=== PATIENT | female | born 1990 | race Two or more races ===

== ENCOUNTER 2023-10-10 00:20 | Emergency (ER) | payer BC, SELFPAY ==
[2023-10-10 00:21] VITALS: BP 136/100
[2023-10-10 01:31] LABS: Hematocrit 22.7 % (37.0-47.0); Hemoglobin 7.6 g/dL (12.0-16.0); Mean Corp Hgb Conc. 33.5 g/dL (33.0-37.0); Mean Corpuscular Hgb 29.1 pg (27.0-31.0); Mean Platelet Volume 9.8 fL (7.4-10.4); Platelet Count 207 10^3/uL (130-400); Red Blood Cell Count 2.61 10^6/uL (4.20-5.40); Red Cell Dist. Width 17.3 % (11.5-14.5); White Blood Cell Count 9.8 10^3/uL (4.8-10.8)
[2023-10-10 01:42] VITALS: BP 119/80
[2023-10-10 01:53] LABS: ALT (SGPT) 17 U/L (0-35); AST (SGOT) 26 U/L (14-36); Albumin 3.2 g/dl (3.5-5.0); Alkaline Phosphatase 120 U/L (38-126); Blood Urea Nitrogen 13 mg/dl (7-17); Carbon Dioxide 26 mmol/L (22-30); Chloride 106 mmol/L (98-107); Glucose 105 mg/dl (70-99); Potassium 4.3 mmol/L (3.5-5.1); Sodium 139 mmol/L (135-145); Total Bilirubin 0.3 mg/dl (0.2-1.3); Total Protein 5.8 g/dl (6.3-8.2); eGFR > 60.00
[2023-10-10 01:54] VITALS: BP 115/82
[2023-10-10 01:57] LABS: Absolute Neutrophils -Man Diff 7.2 10^3/uL (1.4-6.5); Anisocytosis Slight; Band Neutrophils 7 % (0-3); Hypochromasia Slight; Lymphocytes 21 % (20-51); Metamyelocytes 2 % (-); Monocytes 2 % (2-9); Myelocytes 1 % (-); Normal RBC Morphology No; Nucleated Red Blood Cells 3 (-); Platelets Checked Yes; Polychromasia Slight; Segmented Neutrophils 67 % (42-75)
--- NOTE | 2023-10-10 01:57 | ED.GENMED ---
History of Present Illness
General
Chief Complaint: DVT/Possible Blood Clot
Source: patient, spouse and other (Records from [facility].)
Exam Limitations: none
Time Seen by Provider: 10/10/23 00:55
Nursing documentation reviewed up to this point in time: agreed with
History of Present Illness
History of Present Illness:
This is a 33-year-old woman who has history of left calf DVT April of this year which occurred during . She was started on subcutaneous heparin, initially 3 times daily and she underwent induction with vaginal delivery October 03.
No complications during delivery. Heparin was discontinued for 3 days prior to delivery and then resumed postdelivery at 20,000 units twice daily. She has been following with lead web application developer, Dr. Shelby from [place]. She complains of persistent
left posterior calf pain since April and has undergone several venous Dopplers left lower extremity showing no DVT September 22 as well as again October 06.
Despite numerous intervention she continues with left posterior calf pain. She states no improvement in pain despite trial of Dilaudid tablets, oxycodone tablets.
She has been taking Tylenol, last dose at 10:30 PM without relief.
She was evaluated at [facility] ED October 06. Venous Doppler left lower extremity was negative. Labs revealed a hemoglobin of 8.0, hemoglobin 8.4. PTT greater than 120. Recommended to hold her heparin for that day and then
resume the following day. During that ED visit case discussed with hematology as well as LIVE STUDY MANAGER.
Patient states her vaginal bleeding was light yesterday only changing her pad twice but she has had to change her pad 4 times today and passed 1 large clot. She does admit to mild lightheadedness this afternoon which improved after eating a meal.
No chest pain or palpitations, no cough no shortness of breath, no fever no chills.
Tonight after dinner she developed generalized hives and took a dose of Benadryl with complete resolution. No other associated symptoms with the hives and no return of urticaria. She has had similar hives with asparagus and is unsure if the food
she ate tonight was contaminated with asparagus.
Patient states the plan is to continue subcutaneous heparin until 3 months and then discontinue.
She is sporadically nursing but her infant son is also bottle feeding.
Patient reports history of low back pain, sciatica but states left calf pain that has been ongoing since April of this year is quite different from her sciatica pain that she has experienced in the past. She currently denies back pain.
Past History
Past History
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
ED Past Surgical History: Gynecological (D and C 2017)
Social History
Tobacco: Non-smoker
Alcohol: None
Personal:
Living: with family
Family History
Family History: Other (Noncontributory)
Phy Exam
Physical Exam
Physical Exam:
GENERAL: Alert , in no apparent distress. 33-year-old woman appears her stated age, awake and alert, pleasant, appears in no acute distress. is accompanying.
EYE: anicteric
NECK: Supple, nontender, no meningismus, no significant adenopathy.
ENT: oral mucosa is moist. No rhinorrhea.
CARDIAC: Regular rate and rhythm. no murmur.
LUNGS: Clear breath sounds bilaterally, no acute respiratory distress, no wheezes/rales/rhonchi
ABDOMEN: Soft, nondistended, without focal tenderness, no r/g, no cvat. normoactive BS. Scant blood on dani-pad. No active vaginal bleeding.
NEUROLOGICAL: Alert and oriented x3, no focal neuro deficits.
SKIN: Warm and dry, normal color, skin intact. No rash.
MUSCULOSKELETAL: No C/C/E. peripheral pulses are full and equal b/l. Mild to moderate tenderness left posterior calf without soft tissue swelling, no palpable cords, negative Homans' sign.
PSYCH: Normal and appropriate interaction.
Course
Orders/Labs/Results
Orders:
Orders
10/10/23 01:13
Type+Screen Urgent
Complete Blood Count/With Diff Urgent
Comprehensive Metabolic Panel Urgent
Manual Differential Urgent
10/10/23 01:39
ABO2 Urgent
BBK Wristband Number:
Associate notified that ABO2 has been ordered: KEITH/EMR
Date: 10/10/23
Time: 01:21
Ring Conductor ID: [id number]
10/10/23 01:46
PTT Urgent
Prothrombin Time Urgent
10/10/23 01:55
Cyclobenzaprine HCl [Flexeril] 10 mg PO NOW STA
Lidocaine [Lidocaine 4% Patch] 1 patch TOPICAL NOW STA
Apply Lidocaine patch(s) to:: left posterior calf
Tramadol HCl [Ultram] 50 mg PO NOW STA
Abnormal Lab Results
10/10/23 10/10/23
01:13 01:46
RBC 2.61 L 10^6/uL
(4.20-5.40)
Hgb 7.6 L g/dL
(12.0-16.0)
Hct 22.7 L %
(37.0-47.0)
RDW 17.3 H %
(11.5-14.5)
Abs Neuts (Manual) 7.2 H 10^3/uL
(1.4-6.5)
Band Neutrophils 7 H %
(0-3)
APTT 70.4 H Sec
(23.4-35.0)
Glucose 105 H mg/dl
(70-99)
Total Protein 5.8 L g/dl
(6.3-8.2)
Albumin 3.2 L g/dl
(3.5-5.0)
10/10/23 01:13
10/10/23 01:13
Vital Signs
Initial and Last Documented VS:
Initial Vital Signs
Temp Pulse Resp BP Pulse Ox
97.8 F 118 22 136/100 100
10/10/23 00:21 10/10/23 00:21 10/10/23 00:21 10/10/23 00:21 10/10/23 00:21
Last Documented Vital Signs
Temp Pulse Resp BP Pulse Ox
97.8 F 118 22 145/79 98
10/10/23 00:21 10/10/23 00:21 10/10/23 00:21 10/10/23 03:00 10/10/23 03:15
MDM/Problems Addressed
Differential Diagnosis Includes:
Patient presents with increasing vaginal bleeding 5 days.
Concern for symptomatic anemia.
She is certainly at risk for bleeding disorder as she has been maintained on subcutaneous heparin for DVT diagnosed April of this year.
She has had chronic left calf pain status post left calf DVT April of this year. Diagnosed with post phlebitic syndrome. However, there is no evidence of venous insufficiency of the left lower extremity.
Venous Doppler left lower extremity 2 days ago as well as mid September both negative for DVT. No indication to repeat this imaging.
Will check orthostatic vital signs, will check labs including CBC and PTT.
Will trial a dose of tramadol, cyclobenzaprine for left calf pain as well as lidocaine patch.
Chronic conditions affecting care: Other (Recent vaginal delivery, maintained on subcu heparin for DVT discovered April this year.)
Acute Exacerbation and/or Progression of Chronic Illness: Other (Chronic left calf pain status post DVT April this .)
*Pulse Oximetry
Patient hypoxic: no
*Central Station Operator Interpretation
Rate: normal
Interpretation: normal
Rhythm: sinus
*Critical Care Note
Total Time (30-74mins, 75-104mins- exclusive of procedures): Not Applicable
Update Note
Update Note:
10/10/2023 0327 AM
Hemoglobin 7.6. PTT of 70�at goal.
Patient has had no additional vaginal bleeding since arrival to the ED. Her initial pad has scant blood but no additional blood on the pad.
Orthostatic vital signs are negative.
Recommend she continue current dose of twice daily heparin, continue oral iron tablets.
Despite tramadol, Flexeril and lidocaine patch she notes no change in her left posterior calf pain however overall appears quite comfortable.
Recommend she continue Tylenol, lidocaine patch, local heat to her left calf.
With no improvement in pain, will forego writing a prescription for any pain medications and encouraged her to follow-up with her languages and literature instructor as well as her lead web application developer. She requests referral to vascular surgeon as well which will be provided.
ED Attending Note
-
Portions of this chart may have been created with voice recognition software.� Occasional wrong word or��sound alike� substitutions may have occurred due to the inherent limitations of voice recognition software.
Discharge Plan
Departure
Patient Disposition: Home (Routine Discharge)
Date of Disposition: 10/10/23
Time of Disposition: 03:33
Patient with high blood pressure during this ER visit?: No
Condition: Good
Discharge Problem:
Anemia, , chronic left calf pain
Instructions: hemorrhage, Calf Stretches
Prescriptions:
No Action
acetaminophen 500 mg Tablet
1,000 mg PO Q6H PRN (Reason: mild pain)
levothyroxine [Synthroid] 88 mcg Tablet
88 mcg PO DAILY
ferrous sulfate [iron] 325 mg (65 mg iron) Tablet
325 mg PO DAILY
hydrocortisone 2.5 % Cream
1 applic TOPICAL BID PRN (Reason: vaginal sutures)
heparin (porcine) 20,000 unit/mL Solution
20,000 unit SC BID
docusate sodium 100 mg Tablet
100 mg PO BID
oxycodone 5 mg Tablet
5 mg PO Q6H PRN (Reason: pain)
Rx Instructions:
oxy IR
PO DAILY
Referrals:
Avinash Godfrey III, MD [Active] - As needed
NONE,* [Family Provider] -
Activity Restrictions/Additional Instructions:
Follow-up with your languages and literature instructor as well as lead web application developer.
Recommend continuing compression stockings, local heat and Tylenol.
You have been provided with the name and number of one of our vascular surgeon for follow-up as needed.
Interventions
Interventions:
*Risk Screen - Suicide Last Done: 10/10/23 00:21
*General Assessment Last Done: 10/10/23 01:29
*Neglect/Abuse Screening Last Done: 10/10/23 00:21
ED- Fall Risk Assessment Last Done: 10/10/23 01:30
*ED COVID-19 Vaccine History Last Done: 10/10/23 01:30
ED- Cardiac Assessment Last Done: 10/10/23 01:30
ED-Female Genitourinary Assessment Last Done: 10/10/23 01:30
ED- Pulmonary Assessment Last Done: 10/10/23 01:30
ED-Peripheral Vascular Assessment Last Done: 10/10/23 02:00
ED-Skin Assessment Last Done: 10/10/23 01:30
Discharge Date and Time
Print Language: VIET[place]ESE
[2023-10-10 01:58] LABS: Basophilic Stippling Slight; Poikilocytosis Slight; Tear Drop Red Blood Cells Slight; Total Cells Counted 100
[2023-10-10 02:00] VITALS: BP 121/85
[2023-10-10 02:01] LABS: INR 1.04; PT 13.4 Sec (11.4-14.6)
[2023-10-10 02:02] LABS: APTT 70.4 Sec (23.4-35.0)
[2023-10-10] MEDS: ULTRAM 50 MG PO (02:07)
[2023-10-10] MEDS: FLEXERIL 10 MG PO (02:07)
[2023-10-10] MEDS: LIDOCAINE 4% PATCH 1 PATCH TOPICAL (02:07)
[2023-10-10 03:00] VITALS: BP 145/79
== END 2023-10-10 04:10 | disposition home or self-care (01) ==
LOC: EMR 00:20
PROVIDERS: EMERGENCY PHYSICIAN Emergency Medicine
DX: O90.81 Anemia of the puerperium (principal); M79.662 Pain in left lower leg; O72.1 Other immediate postpartum hemorrhage; R42 Dizziness and giddiness; L50.9 Urticaria, unspecified; M54.40 Lumbago with sciatica, unspecified side; Z86.718 Personal history of other venous thrombosis and embolism; Z88.8 Allergy status to other drugs, medicaments and biological substances; Z91.018 Allergy to other foods
CPT/HCPCS: 99283; 80053; 85025; 85610; 85730; 86850; 86900; 86901

== ENCOUNTER 2024-01-01 04:21 | Emergency (ER) | payer BC, SELFPAY ==
[2024-01-01 04:30] VITALS: BP 147/91
--- NOTE | 2024-01-01 04:41 | ED.GENMED ---
History of Present Illness
<Jaspal Lomax, DO - Last Filed: 01/01/24 06:24>
General
Chief Complaint: Musculo-Skeletal Complaint
Source: patient
Exam Limitations: none
Time Seen by Provider: 01/01/24 04:34
History of Present Illness
History of Present Illness:
See MDM
Past History
<Jaspal Lomax, DO - Last Filed: 01/01/24 06:24>
Past History
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
ED Past Surgical History: Gynecological (D and C 2017)
Social History
Tobacco: Non-smoker
Alcohol: None
Personal:
Living: with family
Family History
Family History: Other (Noncontributory)
Phy Exam
<Jaspal Lomax, DO - Last Filed: 01/01/24 06:24>
Physical Exam
Physical Exam:
See MDM
Course
<Jaspal Lomax, DO - Last Filed: 01/01/24 06:24>
Orders/Labs/Results
Orders:
Orders
01/01/24 04:40
Ketorolac [Toradol] 30 mg IM NOW STA
Prednisone [Deltasone] 40 mg PO NOW STA
01/01/24 05:27
HYDROmorphone [Dilaudid] 0.5 mg IM NOW STA
01/01/24 06:33
Ondansetron Orally Disint [Zofran Odt (Orally Disintegrating)] 4 mg PO NOW STA
01/01/24 07:24
Metaxalone [Skelaxin] 800 mg PO NOW STA
01/01/24 07:48
Ondansetron HCl [Zofran] 4 mg PO NOW STA
01/01/24 07:49
Ondansetron Orally Disint [Zofran Odt (Orally Disintegrating)] 4 mg .ROUTE .STK-MED ONE
Vital Signs
Initial and Last Documented VS:
Initial Vital Signs
Temp Pulse Resp BP Pulse Ox
98.1 F 74 18 147/91 100
01/01/24 04:30 01/01/24 04:30 01/01/24 04:30 01/01/24 04:30 01/01/24 04:30
Last Documented Vital Signs
Temp Pulse Resp BP Pulse Ox
98.1 F 63 18 141/80 98
01/01/24 04:30 01/01/24 06:42 01/01/24 06:42 01/01/24 06:42 01/01/24 06:42
<Rufus Lea, DO - Last Filed: 01/01/24 08:33>
Orders/Labs/Results
Orders:
Orders
01/01/24 04:40
Ketorolac [Toradol] 30 mg IM NOW STA
Prednisone [Deltasone] 40 mg PO NOW STA
01/01/24 05:27
HYDROmorphone [Dilaudid] 0.5 mg IM NOW STA
01/01/24 06:33
Ondansetron Orally Disint [Zofran Odt (Orally Disintegrating)] 4 mg PO NOW STA
01/01/24 07:24
Metaxalone [Skelaxin] 800 mg PO NOW STA
01/01/24 07:48
Ondansetron HCl [Zofran] 4 mg PO NOW STA
01/01/24 07:49
Ondansetron Orally Disint [Zofran Odt (Orally Disintegrating)] 4 mg .ROUTE .STK-MED ONE
Vital Signs
Initial and Last Documented VS:
Initial Vital Signs
Temp Pulse Resp BP Pulse Ox
98.1 F 74 18 147/91 100
01/01/24 04:30 01/01/24 04:30 01/01/24 04:30 01/01/24 04:30 01/01/24 04:30
Last Documented Vital Signs
Temp Pulse Resp BP Pulse Ox
98.1 F 63 18 141/80 98
01/01/24 04:30 01/01/24 06:42 01/01/24 06:42 01/01/24 06:42 01/01/24 06:42
<Jaspal Lomax, DO - Last Filed: 01/01/24 06:24>
MDM/Problems Addressed
Differential Diagnosis Includes:
HPI and MDM Narrative:
33-year-old female presenting with left back pain radiating down her leg. Patient had issue like this while she was and she was diagnosed with sciatica. At that time, patient states she was treated with oxycodone and Dilaudid both of
which made her nauseous and delirious. She states that did not help. On exam, she does have point tenderness to her left sacroiliac region. She complains of pain going down her leg into the outside of her left foot. Her leg is neurovascularly
intact. Will give dose of prednisone and Toradol
Physical exam
General: Mildly uncomfortable
HEENT: protecting airway
Neck: appears supple
CV: No evidence of cyanosis
Resp: No accessory muscle use
Back: Point tenderness to left sacroiliac region
Abd: Non-distended
Extremities: No deformities. Distal left lower extremity neurovascularly intact
Neuro: alert
Psych: Normal affect
Skin: Intact
Problems Addressed including Acute and Chronic Conditions affecting care:
1. Sciatica
Acuity: acute
Prognosis: stable
Details: Given the patient that narcotics does not help, will start prednisone and Toradol
Updates
Patient still having pain after prednisone and Toradol. Patient given dose of Dilaudid. On reassessment, she is sleeping and feels better. Discussed follow-up with PCP to obtain MRI and further treatment. We discussed not breast-feeding while on
NSAIDs and narcotics
Differential Diagnosis (but not limited to): Sciatica, muscle strain
Testing considered: Lumbar x-ray but there is no bony tenderness
Drug therapy (if applicable): OTC meds, please see d/c instruction regarding Rx drugs
Amount and/or Complexity of Data Reviewed
Clinical info obtained from: Patient
External data reviewed: N/A
Labs I independently reviewed (but not limited to): N/A
Radiology: N/A
Pulse Ox: not hypoxic
EKG independently reviewed: N/A
Profile Stitching Machine Operator: N/A
Critical Care: N/A
Risk of Complication:
Social Determinants of health: Good social support
Discussed with other providers: N/A
Escalation of Care includes Admit/Obs: After being observed in the Emergency Department, pt stable for discharge.
Occasional wrong word or 'sound a like' substitutions may have occurred due to the inherent limitations of voice recognition software. Read the chart carefully and recognize, using context, where substitutions have occurred.
<Jaspal Lomax, DO - Last Filed: 01/01/24 06:24>
*Critical Care Note
Total Time (30-74mins, 75-104mins- exclusive of procedures): Not Applicable
<Rufus Lea, DO - Last Filed: 01/01/24 08:33>
Update Note
Update Note:
6 AM ER attending asked to reevaluate patient, patient resting comfortably does look like sciatica, she is breast-feeding tells me she can pump and dump, will add some Skelaxin
ED Attending Note
<Jaspal Lomax, DO - Last Filed: 01/01/24 06:24>
-
Portions of this chart may have been created with voice recognition software.� Occasional wrong word or��sound alike� substitutions may have occurred due to the inherent limitations of voice recognition software.
Discharge Plan
Departure
Patient Disposition: Home (Routine Discharge)
Date of Disposition: 01/01/24
Time of Disposition: 06:21
Patient with high blood pressure during this ER visit?: Yes
Discharge Problem:
Sciatica
Instructions: BLOOD PRESSURE
Prescriptions:
New
prednisone 20 mg tablet
40 mg PO DAILY Qty: 10 0RF
diclofenac potassium 50 mg tablet
50 mg PO BID Qty: 20 0RF
oxycodone 5 mg tablet
5 mg PO Q8H PRN (Reason: Pain) Qty: 14 0RF
metaxalone 800 mg tablet
800 mg PO TID PRN (Reason: muscle pain) Qty: 14 0RF
No Action
acetaminophen 500 mg Tablet
1,000 mg PO Q6H PRN (Reason: mild pain)
levothyroxine [Synthroid] 88 mcg Tablet
88 mcg PO DAILY
ferrous sulfate [iron] 325 mg (65 mg iron) Tablet
325 mg PO DAILY
docusate sodium 100 mg Tablet
100 mg PO BID
PO DAILY
Referrals:
NONE,* [Family Provider] -
Activity Restrictions/Additional Instructions:
Please return for any worsening symptoms.
You may return at any time if you have further concerns.
Please follow up with your doctor at the first available appointment, preferably this week. Please discuss your symptoms and obtaining outpatient MRI.
You were given a prescription for narcotics. If you require this pain medicine, please take a daily [id number] stool softener to avoid constipation.
Do not breast-feed while you are taking the pain medicine.
Thank you for choosing [facility].
Interventions
Interventions:
*Risk Screen - Suicide Last Done: 01/01/24 04:27
*General Assessment Last Done: 01/01/24 06:50
*Neglect/Abuse Screening Last Done: 01/01/24 04:28
ED- Fall Risk Assessment Last Done: 01/01/24 04:53
*ED COVID-19 Vaccine History Last Done: 01/01/24 04:28
*Nursing Disposition Last Done: 01/01/24 06:50
ED-Musculoskeletal Assessment Last Done: 01/01/24 04:53
Discharge Date and Time
Print Language: RWAND[place]
[2024-01-01 04:46] VITALS: BMI 38.9
[2024-01-01] MEDS: DELTASONE 40 MG PO (04:47)
[2024-01-01] MEDS: TORADOL 30 MG IM (04:47)
[2024-01-01] MEDS: DILAUDID 0.5 MG IM (05:31)
[2024-01-01] MEDS: ZOFRAN ODT (ORALLY DISINTEGRATING) 4 MG PO (06:36)
[2024-01-01 06:42] VITALS: BP 141/80
[2024-01-01] MEDS: SKELAXIN 800 MG PO (07:43)
== END 2024-01-01 09:30 | disposition home or self-care (01) ==
LOC: EMR 04:21
PROVIDERS: EMERGENCY PHYSICIAN Emergency Medicine
DX: M54.32 Sciatica, left side (principal); Z86.718 Personal history of other venous thrombosis and embolism
CPT/HCPCS: 96372; 99284